=== PATIENT | female | born 1985 | race Caucasian/White ===

== ENCOUNTER 2017-12-02 09:39 | Emergency (ER) | payer OTHER ==
[~2017-12-02] VITALS: Ht 162.6 cm; Wt 89.8 kg
[~2017-12-02 09:39] MED LIST: IMITREX25 MG PO; LEVOTHYROXINE150 MCG PO; NORCO 5-325 TA1 EACH PO
[2017-12-02] MEDS ORDERED: IBU800 MG PO (10:08)
[2017-12-02] MEDS ORDERED: CLEOCIN HCL300 MG PO (10:10)
== END 2017-12-02 10:18 | disposition home or self-care (01) ==
LOC: ED 09:39
DX: L03.315 Cellulitis of perineum (principal); F17.200 Nicotine dependence, unspecified, uncomplicated; Z88.0 Allergy status to penicillin; Z91.040 Latex allergy status
CPT/HCPCS: 99283

== ENCOUNTER 2018-04-13 17:48 | Emergency (ER) | payer OTHER ==
[~2018-04-13] VITALS: Ht 162.6 cm; Wt 89.8 kg
[~2018-04-13 17:48] MED LIST changes: +CLEOCIN HCL300 MG PO; +IBU800 MG PO
== END 2018-04-13 20:06 | disposition home or self-care (01) ==
LOC: ED 17:48
DX: H18.822 Corneal disorder due to contact lens, left eye (principal); H16.9 Unspecified keratitis; X58.XXXA Exposure to other specified factors, initial encounter; E03.9 Hypothyroidism, unspecified; F17.200 Nicotine dependence, unspecified, uncomplicated; Z88.0 Allergy status to penicillin; Z91.040 Latex allergy status; Z79.899 Other long term (current) drug therapy
CPT/HCPCS: 99283

== ENCOUNTER 2020-06-24 13:48 | Emergency (ER) | payer OTHER ==
[~2020-06-24] VITALS: Ht 162.6 cm; Wt 90.7 kg
[2020-06-24] MEDS ORDERED: ULTRAM50 MG PO (18:33)
== END 2020-06-24 18:57 | disposition home or self-care (01) ==
LOC: ED 13:48
DX: M54.6 Pain in thoracic spine (principal); H53.9 Unspecified visual disturbance; R51.9 Headache, unspecified; E03.9 Hypothyroidism, unspecified; Z20.822 Contact with and (suspected) exposure to COVID-19; Z88.0 Allergy status to penicillin; Z91.040 Latex allergy status
CPT/HCPCS: 72100; 80053; 81001; 85025; 96374; 99284-25; C9803; J1885; J7030; U0003